=== PATIENT | male | born 1960 | race African-American/Black ===

== ENCOUNTER 2021-10-14 07:51 | Day surgery (SDC) | payer MEDICARE, OTHER ==
[2021-10-13 11:09] VITALS: BMI 46.3
--- NOTE | 2021-10-14 07:33 | P.GSHP ---
History of Present Illness H&P Date: 10/14/21 CHIEF COMPLAINT: Colon screen HISTORY OF PRESENT ILLNESS: The patient is a 61-year-old male who presents for colon screen. Lower endoscopy was offered for further evaluation and management. PAST MEDICAL HISTORY: Please see list. PAST SURGICAL HISTORY: Please see list. MEDICATIONS: Please see list. ALLERGIES: Please see list. SOCIAL HISTORY: No illicit drug use FAMILY HISTORY: No reports of Crohn disease or ulcerative colitis. REVIEW OF ORGAN SYSTEMS: CONSTITUTIONAL: No reports of fevers or chills. PHYSICAL EXAM: VITAL SIGNS: Stable GENERAL: Well-developed pleasant in no acute distress. HEENT: No scleral icterus. Extraocular movements grossly intact. Moist buccal mucosa. NECK: Supple without lymphadenopathy. CHEST: Unlabored respirations. Equal bilateral excursions. CARDIOVASCULAR: Regular rate and rhythm. Distal 2+ pulses. ABDOMEN: Soft, nontender, nondistended. MUSCULOSKELETAL: No clubbing, cyanosis, or edema. ASSESSMENT: 1. Colon screen. PLAN: 1. Recommend proceeding with a lower endoscopy Past Medical History Past Medical History: Diabetes Mellitus, Hypertension, Thyroid Disorder Additional Past Medical History / Comment(s): back pain-states disabled History of Any Multi-Drug Resistant Organisms: None Reported Past Surgical History: No Surgical Hx Reported Additional Past Surgical History / Comment(s): colonoscopy Past Anesthesia/Blood Transfusion Reactions: No Reported Reaction Past Psychological History: Schizophrenia Smoking Status: Former smoker Past Alcohol Use History: None Reported Additional Past Alcohol Use History / Comment(s): smoked from age 35 -45 years old, hx 1ppd. Past Drug Use History: None Reported - Past Family History Mother Family Medical History: No Reported History Medications and Allergies Home Medications Medication Instructions Recorded Confirmed Type Ascorbic Acid [Vitamin C] 1,000 mg PO DAILY 10/13/21 10/13/21 History Aspirin 81 mg PO DAILY 10/13/21 10/13/21 History Atorvastatin [Lipitor] 20 mg PO HS 10/13/21 10/13/21 History Calcium Carbonate [Calcium] 600 mg PO DAILY 10/13/21 10/13/21 History Cholecalciferol [Vitamin D3 (25 25 mcg PO DAILY 10/13/21 10/13/21 History Mcg = 1000 Iu)] Furosemide [Lasix] 20 mg PO DAILY 10/13/21 10/13/21 History Insulin Glargine,Hum.rec.anlog 5 unit SQ HS 10/13/21 10/13/21 History [Lantus Solostar Pen] Levothyroxine Sodium 25 mcg PO DAILY 10/13/21 10/13/21 History Lisinopril [Zestril] 10 mg PO DAILY 10/13/21 10/13/21 History Lumateperone Tosylate [Caplyta] 40 mg PO DAILY 10/13/21 10/13/21 History Multivit-Min/FA/Lycopen/Lutein 1 each PO DAILY 10/13/21 10/13/21 History [Centrum Silver Men Tablet] Thayer-3 Fatty Acids [Thayer-3] 1,000 mg PO DAILY 10/13/21 10/13/21 History Vitamin A Acetate [Vitamin A] 10,000 unit PO DAILY 10/13/21 10/13/21 History Vitamin B Complex 1 each PO DAILY 10/13/21 10/13/21 History clonazePAM [KlonoPIN] 1 mg PO HS 10/13/21 10/13/21 History fluPHENAZine decanoate [Prolixin 25 mg IM MO 10/13/21 10/13/21 History Decanoate] metFORMIN HCL 500 mg PO BID 10/13/21 10/13/21 History Allergies Allergy/AdvReac Type Severity Reaction Status Date / Time No Known Allergies Allergy Verified 10/13/21 10:29
[~2021-10-14 07:51] MED LIST: LACTATED RINGERS 1,000 ML IV SCH; LIDOCAINE 1% (10MG/ML) FOR IV START INTRADERMA PRN
[2021-10-14 08:49] VITALS: TEMP 97
[2021-10-14 08:53] LABS: Glucose,Whole Blood 119 mg/dL (75-99)
[2021-10-14] MEDS ORDERED: PROPOFOL 10 MG/ML 20 ML VIAL IV ONE (08:54)
--- NOTE | 2021-10-14 09:19 | P.PCN ---
Date of Procedure: 10/14/21 Description of Procedure: PREOPERATIVE DIAGNOSIS: Colonoscopy screening. POSTOPERATIVE DIAGNOSIS: Colonoscopy screening. OPERATION: Colonoscopy to the cecum, ileocecal valve and appendiceal orifice. SURGEON: Genesis Lara MD. ANESTHESIA: MAC. INDICATIONS: The patient is a 61-year-old male who presents for colonoscopy screening. Benefits and risks were described and informed consent was obtained. DESCRIPTION OF PROCEDURE: The patient had undergone Sutab prep. The patient had been brought into the operating room and laid in the left lateral decubitus position. After adequate intravenous sedation, the rectum was examined with 2% lidocaine jelly. No external hemorrhoids were encountered. The rectal tone was within normal limits. No lesions were palpated in the rectal vault. An Olympus colonoscope was advanced until the cecum, ileocecal valve and appendiceal orifice were clearly viewed. Abdominal pressure was used to advance the scope. The prep was fair. No scattered diverticulosis was encountered. No colonic polyps were found. No evidence of focal colitis was found. Retroflexion of the scope demonstrated grade 1 internal hemorrhoids without active bleeding or inflammation. The colon was desufflated. The patient had tolerated the procedure well. Withdrawal time was over 6 minutes. FINDINGS: Aronchick preparation quality scale 3 (1-5) Internal hemorrhoids, grade 1 No external prolapsed hemorrhoids. No arteriovenous malformations. No adenomatous polyps. No focal colitis. RECOMMENDATIONS: Lower endoscopy in 5 years, 2025 Plan - Discharge Summary New Discharge Prescriptions: Continue fluPHENAZine decanoate [Prolixin Decanoate] 25 mg IM MO Lumateperone Tosylate [Caplyta] 40 mg PO DAILY metFORMIN HCL 500 mg PO BID clonazePAM [KlonoPIN] 1 mg PO HS Banning-3 Fatty Acids [Banning-3] 1,000 mg PO DAILY Vitamin A Acetate [Vitamin A] 10,000 unit PO DAILY Furosemide [Lasix] 20 mg PO DAILY Cholecalciferol [Vitamin D3 (25 Mcg = 1000 Iu)] 25 mcg PO DAILY Multivit-Min/FA/Lycopen/Lutein [Centrum Silver Men Tablet] 1 each PO DAILY Levothyroxine Sodium 25 mcg PO DAILY Vitamin B Complex 1 each PO DAILY Aspirin 81 mg PO DAILY Lisinopril [Zestril] 10 mg PO DAILY Insulin Glargine,Hum.rec.anlog [Lantus Solostar Pen] 5 unit SQ HS Atorvastatin [Lipitor] 20 mg PO HS Calcium Carbonate [Calcium] 600 mg PO DAILY Ascorbic Acid [Vitamin C] 1,000 mg PO DAILY Discharge Medication List Ascorbic Acid [Vitamin C] 1,000 mg PO DAILY 10/13/21 [History] Aspirin 81 mg PO DAILY 10/13/21 [History] Atorvastatin [Lipitor] 20 mg PO HS 10/13/21 [History] Calcium Carbonate [Calcium] 600 mg PO DAILY 10/13/21 [History] Cholecalciferol [Vitamin D3 (25 Mcg = 1000 Iu)] 25 mcg PO DAILY 10/13/21 [History] Furosemide [Lasix] 20 mg PO DAILY 10/13/21 [History] Insulin Glargine,Hum.rec.anlog [Lantus Solostar Pen] 5 unit SQ HS 10/13/21 [History] Levothyroxine Sodium 25 mcg PO DAILY 10/13/21 [History] Lisinopril [Zestril] 10 mg PO DAILY 10/13/21 [History] Lumateperone Tosylate [Caplyta] 40 mg PO DAILY 10/13/21 [History] Multivit-Min/FA/Lycopen/Lutein [Centrum Silver Men Tablet] 1 each PO DAILY 10/13/21 [History] Banning-3 Fatty Acids [Banning-3] 1,000 mg PO DAILY 10/13/21 [History] Vitamin A Acetate [Vitamin A] 10,000 unit PO DAILY 10/13/21 [History] Vitamin B Complex 1 each PO DAILY 10/13/21 [History] clonazePAM [KlonoPIN] 1 mg PO HS 10/13/21 [History] fluPHENAZine decanoate [Prolixin Decanoate] 25 mg IM MO 10/13/21 [History] metFORMIN HCL 500 mg PO BID 10/13/21 [History] Follow up Appointment(s)/Referral(s): Genesis Lara MD [STAFF PHYSICIAN] - As Needed Patient Instructions/Handouts: Colonoscopy (DC) Activity/Diet/Wound Care/Special Instructions: Repeat colonoscopy in 5 years, 2025 Discharge Disposition: HOME SELF-CARE
[2021-10-14 09:29] VITALS: BP 116/85; PULSE 76; RESP 16
== END 2021-10-14 09:53 | disposition home or self-care (01) ==
LOC: ORWHC2ENDO 07:51
PROVIDERS: ATTEND Surgery Plastic and Reconstructive Surgery
DX: Z12.11 Encounter for screening for malignant neoplasm of colon (principal); K64.8 Other hemorrhoids; E11.9 Type 2 diabetes mellitus without complications; F20.9 Schizophrenia, unspecified; E07.9 Disorder of thyroid, unspecified; M54.9 Dorsalgia, unspecified; Z79.899 Other long term (current) drug therapy; Z79.82 Long term (current) use of aspirin; I10 Essential (primary) hypertension; Z87.891 Personal history of nicotine dependence
CPT/HCPCS: J2704; G0121; 45378

== ENCOUNTER → 2024-08-01 | Outpatient (CLI) | payer MEDICARE ==
--- NOTE | 2024-08-01 09:42 | US ---
EXAMINATION TYPE: US venous doppler duplex LE BI DATE OF EXAM: 08/01/2024 9:15 AM COMPARISON: NONE CLINICAL INDICATION: Male, 64 years old with history of Z86.718 PERSONAL HX OF VENOUS THROMBOSIS AND EMBOL; Pain. Patient states he has no hx of DVT. Patient takes baby aspirin. SIDE PERFORMED: Bilateral TECHNIQUE: The lower extremity deep venous system is examined utilizing real time linear array sonog stephen with graded compression, doppler sonography and color-flow sonography. VESSELS IMAGED: Common Femoral Vein Deep Femoral Vein Greater Saphenous Vein * Femoral Vein Popliteal Vein Small Saphenous Vein * Proximal Calf Veins (* superficial vessels) Right Leg: No evidence of DVT. Left Leg: No evidence of DVT. IMPRESSION: No ultrasound evidence for deep venous thrombosis of the bilateral lower extremities.
== END | disposition home or self-care (01) ==
LOC: RADUSWWP 08:47
PROVIDERS: ATTEND Internal Medicine Interventional Cardiology
DX: Z86.718 Personal history of other venous thrombosis and embolism (principal)
CPT/HCPCS: 93970

== ENCOUNTER → 2024-08-14 | Outpatient (CLI) | payer MEDICARE ==
[2024-08-14 15:21] LABS: Appearance,Urine Clear (Clear); Bilirubin,Urine Negative (Negative); Blood,Urine Negative (Negative); Color,Urine Yellow (Yellow); Ketones,Urine Negative (Negative); Nitrite,Urine Negative (Negative); Specific Gravity,Urine 1.008 (1.001-1.030); Urobilinogen,Urine 0.2 E.U./DL
[2024-08-14 15:27] LABS: Bacteria,Urine None Seen (None Seen)
[2024-08-14 16:29] LABS: Basophils # (A) 0.05 X 10*3/uL (0.00-0.10); Basophils % (A) 0.8 %; Eosinophils # (A) 0.05 X 10*3/uL (0.04-0.35); Eosinophils % (A) 0.8 %; HCT 40.4 % (39.6-50.0); Lymphocytes # (A) 1.96 X 10*3/uL (0.90-5.00); Lymphocytes % (A) 32.2 %; MCH 27.1 pg (27.0-32.0); MCHC 32.2 g/dL (32.0-37.0); MCV 84.3 FL (80.0-97.0); Monocytes # (A) 0.51 X 10*3/uL (0.20-1.00); Monocytes % (A) 8.4 %; NRBC Per 100 WBC 0 X 10*3/uL (0.00-0.01); Neutrophils % (A) 57.5 %; Platelet Count 199 X 10*3/uL (140-440); RBC 4.79 X 10*6/uL (4.40-5.60); RDW 14.6 % (11.5-14.5); WBC 6.09 X 10*3/uL (4.50-10.00)
[2024-08-14 16:59] LABS: ALT 27 U/L (10-49); AST 24 U/L (14-35); Albumin 4.7 g/dL (3.8-4.9); Albumin/Globulin Ratio 1.42 Ratio (1.60-3.17); Alkaline Phosphatase 81 U/L (41-126); Calcium 10.1 mg/dL (8.7-10.3); Carbon Dioxide 26.3 mmol/L (21.6-31.8); Chloride 100 mmol/L (96-109); Globulin 3.3 g/dL (1.6-3.3); Glucose 128 mg/dL (70-110); Potassium 4.3 mmol/L (3.5-5.5); Prostate Specific Antigen 0.53 ng/mL (0.000-4.500); Sodium 139 mmol/L (135-145); T4, Free (Free Thyroxine) 0.93 ng/dL (0.80-1.80); Total Bilirubin <0.2 mg/dL (0.3-1.2)
[2024-08-14 20:52] LABS: Microalbumin Creatinine Ratio <30 mg/g Cr (0-30); Urine Creatinine 40.4 mg/dL (39.0-259.0)
== END | disposition home or self-care (01) ==
LOC: LABWHC1 09:21
PROVIDERS: ATTEND Family Medicine
DX: Z12.11 Encounter for screening for malignant neoplasm of colon (principal); N40.1 Benign prostatic hyperplasia with lower urinary tract symptoms; E78.5 Hyperlipidemia, unspecified; E03.9 Hypothyroidism, unspecified; E11.65 Type 2 diabetes mellitus with hyperglycemia
CPT/HCPCS: 36415; 80053; 80061; 81001; 82043; 82272; 82570; 83036; 84153; 84439; 84443; 85025

== ENCOUNTER 2024-10-09 07:25 | Emergency (ER) | payer MEDICARE, OTHER ==
[2024-10-09 08:06] LABS: Glucose,Whole Blood 119 mg/dL (70-110)
[2024-10-09 09:24] LABS: Amphetamine Screen,Urine Not Detected (NotDetected); Barbiturate Screen,Urine Not Detected (NotDetected); Benzodiazepines Screen,Urine Not Detected (NotDetected); Cocaine Screen,Urine Not Detected (NotDetected); Methadone Screen, Urine Not Detected (NotDetected); Opiate Screen,Urine Not Detected (NotDetected); Oxycodone Screen, Urine Not Detected (NotDetected); Phencyclidine Screen,Urine Not Detected (NotDetected); Tricyclic Antidepressant,Urine Not Detected (NotDetected); Urn Cannabinoid Scrn Not Detected (NotDetected)
[2024-10-09 09:25] LABS: Appearance,Urine Clear (Clear); Bilirubin,Urine Negative (Negative); Blood,Urine Negative (Negative); Color,Urine Colorless; Glucose,Urine (UA) Negative (Negative); Ketones,Urine Negative (Negative); Leukocyte Esterase,Urine Negative (Negative); Nitrite,Urine Negative (Negative); PH, Urine 5.5 (5.0-8.0); Protein,Urine Negative (Negative); Specific Gravity,Urine 1.006 (1.001-1.035); Urobilinogen,Urine <2.0 mg/dL (<2.0)
--- NOTE | 2024-10-09 11:32 | ED ---
General Adult HPI - General Chief complaint: Psychiatric Symptoms Stated complaint: mental health Time Seen by Provider: 10/09/24 07:27 Source: patient, EMS, RN notes reviewed Mode of arrival: EMS Limitations: altered mental status - History of Present Illness Initial comments: Patient is a 64-year-old male presenting to the emergency department with co ncerns for hallucinations. Patient does have history of schizophrenia and has chronic hallucinations. Patient feels that people are trying to get in his house. Patient states he does have this feeling frequently however. Patient questions if they turn into snakes when they get into his house. Patient does not have any suicidal or homicidal thoughts. Patient has been taking his medication. Patient denies any physical complaints. - Related Data Home Medications Medication Instructions Recorded Confirmed Ascorbic Acid [Vitamin C] 1,000 mg PO DAILY 10/13/21 10/14/21 Aspirin 81 mg PO DAILY 10/13/21 10/13/21 Atorvastatin [Lipitor] 20 mg PO HS 10/13/21 10/14/21 Calcium Carbonate [Calcium] 600 mg PO DAILY 10/13/21 10/14/21 Cholecalciferol [Vitamin D3 (25 25 mcg PO DAILY 10/13/21 10/14/21 Mcg = 1000 Iu)] Furosemide [Lasix] 20 mg PO DAILY 10/13/21 10/14/21 Insulin Glargine,Hum.rec.anlog 5 unit SQ HS 10/13/21 10/13/21 [Lantus Solostar Pen] Levothyroxine Sodium 25 mcg PO DAILY 10/13/21 10/14/21 Lumateperone Tosylate [Caplyta] 40 mg PO DAILY 10/13/21 10/14/21 Mv-Min/Folic/K1/Lycopen/Lutein 1 each PO DAILY 10/13/21 10/13/21 [Centrum Silver Men Tablet] Buna-3 Fatty Acids [Buna-3] 1,000 mg PO DAILY 10/13/21 10/14/21 Vitamin A Acetate [Vitamin A] 10,000 unit PO DAILY 10/13/21 10/13/21 Vitamin B Complex 1 each PO DAILY 10/13/21 10/14/21 clonazePAM [KlonoPIN] 1 mg PO HS 10/13/21 10/14/21 fluPHENAZine decanoate [Prolixin 25 mg IM MO 10/13/21 10/14/21 Decanoate] lisinopriL [Zestril] 10 mg PO DAILY 10/13/21 10/14/21 metFORMIN HCL 500 mg PO BID 10/13/21 10/13/21 Allergies Allergy/AdvReac Type Severity Reaction Status Date / Time No Known Allergies Allergy Verified 10/09/24 07:38 Review of Systems ROS Statement: Those systems with pertinent positive or pertinent negative responses have been documented in the HPI. ROS Other: All systems not noted in ROS Statement are negative. Constitutional: Denies: fever Eyes: Denies: eye pain ENT: Denies: ear pain Respiratory: Denies: cough, dyspnea Cardiovascular: Denies: chest pain Neurological: Denies: headache, weakness Psychiatric: Reports: as per HPI, visual hallucinations Past Medical History Past Medical History: Diabetes Mellitus, Hypertension, Thyroid Disorder Additional Past Medical History / Comment(s): back pain-states disabled History of Any Multi-Drug Resistant Organisms: None Reported Past Surgical History: No Surgical Hx Reported, Appendectomy Additional Past Surgical History / Comment(s): colonoscopy Past Anesthesia/Blood Transfusion Reactions: No Reported Reaction Past Psychological History: Schizophrenia Smoking Status: Former smoker Past Alcohol Use History: None Reported Past Drug Use History: None Reported - Past Family History Mother Family Medical History: No Reported History General Exam Limitations: no limitations General appearance: alert, in no apparent distress Head exam: Present: normocephalic Eye exam: Present: normal appearance, PERRL, EOMI Neck exam: Present: normal inspection. Absent: tenderness, meningismus Respiratory exam: Present: normal lung sounds bilaterally Cardiovascular Exam: Present: regular rate, normal rhythm GI/Abdominal exam: Present: soft. Absent: tenderness Extremities exam: Present: normal inspection. Absent: pedal edema, calf tenderness Neurological exam: Present: alert, oriented X3, CN II-XII intact. Absent: motor sensory deficit Psychiatric exam: Present: normal affect, normal mood Skin exam: Present: normal color Course Vital Signs 10/09/24 10/09/24 07:27 08:56 Temperature 98.3 F Pulse Rate 86 Respiratory 19 17 Rate Blood Pressure 116/79 O2 Sat by Pulse 98 Oximetry Medical Decision Making - Medical Decision Making Was pt. sent in by a medical professional or institution (, PA, ENDLESS TRACK VEHICLE MECHANIC, urgent care, hospital, or long term...) When possible be specific @ -No Did you speak to anyone other than the patient for history (EMS, parent, family, police, friend...)? What history was obtained from this source @ -Help provide history of patient complaint Did you review nursing and triage notes (agree or disagree)? Why? @ -I reviewed and agree with nursing and triage notes Were old charts reviewed (outside hosp., previous admission, EMS record, old EKG, old radiological studies, urgent care reports/EKG's, long term records)? Report findings @ -No old charts were reviewed Differential Diagnosis (chest pain, altered mental status, abdominal pain women, abdominal pain men, vaginal bleeding, weakness, fever, dyspnea, syncope, headache, dizziness, GI bleed, back pain, seizure, CVA, palpatations, mental health, musculoskeletal)? @ -Differential Mental Health Depression, anxiety, bipolar, psychosis, schizophrenia, borderline personality, situational depression, adjustment disorder, behavioral disorder, brain tumor, malingering, substance abuse, encephalopathy, medication reaction, dementia, hypothyroidism, degenerative neurologic disorder, lupus.... This is not meant to be all-inclusive list EKG interpreted by me (3pts min.). @ -As above X-rays interpreted by me (1pt min.). @ -None done CT interpreted by me (1pt min.). @ -None done U/S interpreted by me (1pt. min.). @ -None done What testing was considered but not performed or refused? (CT, X-rays, U/S, labs)? Why? @ -Considering lab work however patient does have chronic history of similar problems and is on medication for What meds were considered but not given or refused? Why? @ -None Did you discuss the management of the patient with other professionals (professionals i.e. , PA, ENDLESS TRACK VEHICLE MECHANIC, lab, RT, psych nurse, social science instructor, furniture finisher apprentice, teacher, chief analytics officer, manager case)? Give summary @ -Case discussed with mental health worker with plans for discharge and follow-up. Patient will be discharged to [facility] worker who is already established with patient Was smoking cessation discussed for >3mins.? @ -No Was critical care preformed (if so, how long)? @ -No Were there social determinants of health that impacted care today? How? (Homelessness, low income, unemployed, alcoholism, drug addiction, transportation, low edu. Level, literacy, decrease access to med. care, alf, rehab)? @ -No Was there de-escalation of care discussed even if they declined (Discuss DNR or withdrawal of care, Hospice)? DNR status @ -No What co-morbidities impacted this encounter? (DM, HTN, Smoking, COPD, CAD, Cancer, CVA, ARF, Chemo, Hep., AIDS, mental health diagnosis, sleep apnea, morbid obesity)? @ -History of schizophrenia Was patient admitted / discharged? Hospital course, mention meds given and route, prescriptions, significant lab abnormalities, going to OR and other pertinent info. @ -Patient presents with hallucinations however these are chronic. Patient seen by mental health services with plans for discharge. Patient will be discharged to [facility] worker Undiagnosed new problem with uncertain prognosis? @ -No Drug Therapy requiring intensive monitoring for toxicity (Heparin, Nitro, Insulin, Cardizem)? @ -No Were any procedures done? @ -No Diagnosis/symptom? @ -Hallucinations Acute, or Chronic, or Acute on Chronic? @ -Acute on chronic Uncomplicated (without systemic symptoms) or Complicated (systemic symptoms)? @ -Default Side effects of treatment? @ -No Exacerbation, Progression, or Severe Exacerbation? @ -No Poses a threat to life or bodily function? How? (Chest pain, [place], [place], pneumonia, PE, COPD, DKA, ARF, appy, cholecystitis, CVA, Diverticulitis, Homicidal, Suicidal, threat to staff... and all critical care pts) @ -No - Lab Data Lab Results 10/09/24 10/09/24 10/09/24 Range/Units 08:05 09:00 09:00 POC Glucose (mg/dL) 119 H (70-110) mg/dL POC Glu Brown Stock Washer ID Yuan Sandrita Urine Color Colorless Urine Appearance Clear (Clear) Urine pH 5.5 (5.0-8.0) Ur Specific [place] 1.006 (1.001-1.035) Urine Protein Negative (Negative) Urine Glucose (UA) Negative (Negative) Urine Ketones Negative (Negative) Urine Blood Negative (Negative) Urine Nitrite Negative (Negative) Urine Bilirubin Negative (Negative) Urine Urobilinogen <2.0 (<2.0) mg/dL Ur Leukocyte Esterase Negative (Negative) Urine Opiates Screen Not Detected (NotDetected) Ur Oxycodone Screen Not Detected (NotDetected) Urine Methadone Screen Not Detected (NotDetected) Ur Barbiturates Screen Not Detected (NotDetected) U Tricyclic Antidepress Not Detected (NotDetected) Ur Phencyclidine Scrn Not Detected (NotDetected) Ur Amphetamines Screen Not Detected (NotDetected) U Methamphetamines Scrn Not Detected (NotDetected) U Benzodiazepines Scrn Not Detected (NotDetected) Urine Cocaine Screen Not Detected (NotDetected) U Marijuana (THC) Screen Not Detected (NotDetected) Disposition Clinical Impression: Hallucinations Disposition: HOME SELF-CARE Condition: Stable Instructions (If sedation given, give patient instructions): Psychotic Disorder (ED), Hallucinations (ED) Additional Instructions: Please continue medications as prescribed. Please follow-up with primary care physician and your psychiatrist in the next day or 2 for recheck. Return for thoughts of self-harm, thoughts of harming others, worsening symptoms or any other concerns. Is patient prescribed a controlled substance at d/c from ED?: No Referrals: Polo Silva MD [Primary Care Provider] - 1-2 days Time of Disposition: 11:31
[2024-10-09 11:48] VITALS: BP 118/78; PULSE 89; RESP 18; TEMP 97.8
== END 2024-10-09 11:52 | disposition home or self-care (01) ==
LOC: EC 07:25
DX: R44.3 Hallucinations, unspecified (principal); Z87.891 Personal history of nicotine dependence
CPT/HCPCS: 36415; 80306; 81003; 82075; 99285